=== PATIENT | male | born 1960 | race Caucasian/White ===

== ENCOUNTER 2021-12-15 21:50 | Emergency (ER) | payer BC ==
[2021-12-15 22:52] LABS: CARBON DIOXIDE,CO2 24.8 mmol/L (21.0-32.0); POTASSIUM,K 3.5 mmol/L (3.5-5.1)
[2021-12-15] MEDS ORDERED: Apixaban 5 MG Tab PO ONE (23:33)
== END 2021-12-16 00:10 | disposition home or self-care (01) ==
LOC: MW.ED 21:50
DX: I82.431 Acute embolism and thrombosis of right popliteal vein (principal); Z79.01 Long term (current) use of anticoagulants
CPT/HCPCS: 36415; 80053; 85025; 85610; 85730; 93971; 99284; A9270